=== PATIENT | male | born 1990 | race Caucasian/White ===

== ENCOUNTER 2020-09-18 22:29 | Emergency (ER) | payer SELFPAY ==
[2020-09-18 22:32] VITALS: BP 146/85; PULSE 94; RESP 14; TEMP 36.7; O2SAT 96; BMI 37.5
--- NOTE | 2020-09-18 22:39 | W.ED.GENADLT ---
HPI - General Adult General: Chief complaint: General Medical Stated complaint: sore throat Time Seen by Provider: 09/18/20 22:39 Source: patient Mode of arrival: ambulatory Limitations: no limitations History of Present Illness: HPI narrative: Patient presents with sore throat for 3 days. Patient has been taken amoxicillin with minimal to no relief for the last 3 days. Patient appears mildly unwell. Patient appears in mild to moderate discomfort. Review of Systems General: Reports: 10 or more systems reviewed and unremarkable except in HPI and below ENMT: Reports: throat pain Physical Exam Const: COMMON NORMALS: no acute distress and patient oriented x3 GENERAL APPEARANCE: cooperative HENMT: COMMON NORMALS: normocephalic, TM's normal bilaterally and Normal external nose present HEAD & SCALP: normal to inspection and normocephalic NOSE: Normal external nose present TYMPANIC MEMBRANE: TM's normal bilaterally MOUTH: Normal oral and palatal mucosa present THROAT: abnormal tonsil bilateral erythema and posterior oropharynx abnormal erythema Eye: GENERAL EYE: appearance normal, both eyes and all related structures Neck/C-Spine: COMMON NORMALS: full ROM Lymph: LYMPHATIC: lymphadenopathy (Cervical anterior) Chest: COMMONS NORMALS: normal inspection of the chest Resp: COMMON NORMALS: normal respiratory effort EFFORT & INSPECTION: Yes able to speak in complete sentences Cardio: COMMON NORMALS: regular rate and regular rhythm RATE: regular rate RHYTHM: regular rhythm GI: COMMON NORMALS: non-tender Back/Pelvis: COMMON NORMALS: thoracic and lumbar spine normal to inspection Extremity: COMMON NORMALS: normal to inspection Neuro: COMMON NORMALS: patient oriented x3 and moves all extremities Psych: COMMON NORMALS: mental status grossly normal and cooperative Skin: COMMON NORMALS: no rashes or lesions noted GENERAL SKIN EXAM: no rashes or lesions noted Course Vital Signs: Vital signs: Vital Signs Temperature 98.1 F 09/18/20 22:32 Pulse Rate 94 09/18/20 22:32 Respiratory Rate 14 09/18/20 22:32 Blood Pressure 146/85 09/18/20 22:32 Pulse Oximetry 96 09/18/20 22:32 MDM - General Adult MDM Narrative: Medical decision making narrative: Patient comes in today for complaints of sore throat. Patient's been ill for 3 days. On exam he has some erythema to the posterior pharynx and bilateral tonsils. Some anterior cervical adenopathy is noted. Skin is warm and dry. Patient appears in no acute distress. Vital signs are normal. Differential diagnosis includes strep pharyngitis, viral syndrome, tonsillitis. Patient has been on amoxicillin for 3 days now. Recommended gram Rocephin, 10 mg dexamethasone IM, and 30 mg of Toradol for pain. Patient will be continued on clindamycin and dexamethasone with some ibuprofen as needed for pain. Patient reported understanding of care plan and need for follow-up or return to the ER. Discharge Plan Discharge Patient Disposition: Home Clinical Impression: Pharyngitis, acute Qualifiers: Pharyngitis/tonsillitis etiology: unspecified etiology Qualified Code(s): J02.9 - Acute pharyngitis, unspecified Condition: Stable Prescriptions: New clindamycin HCl 150 mg capsule 450 mg PO Q8H 10 Days Qty: 90 RF: 0 dexamethasone 4 mg tablet 4 mg PO DAILY Qty: 5 RF: 0 ibuprofen 600 mg tablet 600 mg PO Q6H PRN (Reason: fever or pain) Qty: 60 RF: 0 Discharge Orders: Discharge ED (Routine); Ordered 09/18/20 Ordered By: Robbin Trejo Discharge Diet: Usual diet Discharge Activity: Increase activity as tolerated Patient Instructions: Pharyngitis (ED), Opioid Safety Activity Restrictions/Additional Instructions: Drink plenty of water. Take medications as directed. Follow-up with primary care in 1 week for recheck. Return to emergency department for worsening symptoms or new concerns. Coding Level of Care Code ED Protective Services Officer for Marlyn Malin
[2020-09-18] MEDS: dexamethasone 10 mg/mL INJ IM (22:54)
[2020-09-18] MEDS: cefTRIAXone 1,000 MG in lidocaine 1% 2.1 ML 999 MG IM (22:55)
[2020-09-18] MEDS: ketorolac 30 mg/mL INJ IM (22:58)
== END 2020-09-18 23:09 | disposition home or self-care (01) ==
PROVIDERS: Emergency Provider Nurse Practitioner Family
DX: J02.9 Acute pharyngitis, unspecified (principal)
CPT/HCPCS: 96372; 99283; J0696; J1100; J1885

== ENCOUNTER 2021-01-08 19:57 | Emergency (ER) | payer SELFPAY ==
[2021-01-08 20:28] VITALS: BP 138/88; PULSE 75; RESP 16; TEMP 36.8; O2SAT 96; BMI 38.7
[2021-01-08 21:59] LABS: Add Urine Microscopic? NO; Charge for UA Resulting for Rev
[2021-01-08 22:04] LABS: Bilirubin Urine Neg (Negative); Blood Urine Neg (Negative); Glucose Urine UA Norm (Normal); Ketones Urine 1+ (Negative); Leukocyte Esterase Urine Negative (Negative); Nitrate Urine Negative (Negative); Protein Urine Neg (Negative); Urine Appearance Clear (CLEAR); Urine Color Yellow (Yellow); Urobilinogen Urine Norm (Negative); pH Urine 7 (5-7)
== END 2021-01-09 00:11 ==
PROVIDERS: Nurse Practitioner Family
DX: Z53.21 Procedure and treatment not carried out due to patient leaving prior to being seen by health care provider (principal)
CPT/HCPCS: 81003

== ENCOUNTER → 2021-04-18 08:48 | Outpatient (BNVA) | payer OTHER, SELFPAY | PROVIDERS: PCP Nurse Practitioner; Visit Provider Nurse Practitioner Family | DX: Z20.822 Contact with and (suspected) exposure to COVID-19 (principal) | CPT/HCPCS: 87635 ==